=== PATIENT | female | born 2000 | race Caucasian/White ===

== ENCOUNTER 2024-04-15 23:05 | Emergency (ER) | payer SELFPAY ==
[2024-04-15 23:12] VITALS: BP 130/88
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
[2024-04-15] MEDS: MOTRIN 600 MG PO (23:38)
[2024-04-16] VITALS: BP 125/80
== END 2024-04-16 00:35 | disposition home or self-care (01) ==
LOC: EMR 23:05
PROVIDERS: EMERGENCY PHYSICIAN Emergency Medicine
DX: S52.612D Displaced fracture of left ulna styloid process, subsequent encounter for closed fracture with routine healing (principal); S52.592A Other fractures of lower end of left radius, initial encounter for closed fracture; S00.81XA Abrasion of other part of head, initial encounter; R10.31 Right lower quadrant pain; M54.50 Low back pain, unspecified; V43.52XA Car driver injured in collision with other type car in traffic accident, initial encounter; Y92.410 Unspecified street and highway as the place of occurrence of the external cause
CPT/HCPCS: 99283; 29125; 73110